=== PATIENT | male | born 1995 | race Caucasian/White ===

== ENCOUNTER 2021-01-28 11:49 | Emergency (ER) | payer BC ==
[2021-01-28] MEDS ORDERED: MECLIZINE HCL 12.5 MG TAB ONE (12:29)
[2021-01-28] MEDS ORDERED: ONDANSETRON 4 MG/2 ML VIAL ONE (12:29)
[2021-01-28 12:40] LABS: Absolute Lymphocytes (CBC) 5.9 K/uL (0.7-4.9); Basophils % 0.3 % (0-1.3); Hematocrit 46.8 % (39.6-49.0); Lymphocytes % 48.8 % (15.3-44.8); MPV 8.7 fL (7.6-11.3); RBC Red Blood Cell Count 5.42 M/uL (4.33-5.43)
--- NOTE | 2021-01-28 13:10 | RAD REPORT ---
EXAM DESCRIPTION: RAD - Chest Single View - 01/28/2021 12:59 pm CLINICAL HISTORY: CHEST PAIN Chest pain. COMPARISON: No comparisons FINDINGS: Portable technique limits examination quality. The lungs are grossly clear. The heart is normal in size. No displaced fractures. IMPRESSION: No acute intrathoracic process suspected.
[2021-01-28 13:19] LABS: Bilirubin Direct 0.1 mg/dL (0-0.2); Bilirubin Total 0.6 mg/dL (0.2-1.0)
[2021-01-28 13:23] LABS: Potassium 2.7 mmol/L (3.5-5.1)
[2021-01-28 14:01] LABS: NT PRO-BNP 24 pg/mL (<125); Troponin (Emerg Dept Use Only) < 0.02 ng/mL (0.0-0.045)
[2021-01-28 16:00] LABS: Urine Blood Negative (Negative); Urine Glucose Negative (Negative); Urine Protein Negative (Negative); Urine Specific Gravity >=1.030 (1.005-1.030); Urine pH 6.5 (5.0-7.0)
[2021-01-28 16:09] LABS: Barbiturates NEGATIVE (NEGATIVE); Benzodiazepines NEGATIVE (NEGATIVE); Cocaine NEGATIVE (NEGATIVE); METHAMPHETAM NEGATIVE (NEGATIVE); Methadone NEGATIVE (NEGATIVE); Opiates NEGATIVE (NEGATIVE); Phencyclidine NEGATIVE (NEGATIVE); THC Cannibis NEGATIVE (NEGATIVE)
--- NOTE | 2021-01-28 16:13 | ER ---
Nurse's Notes [facility] Name: Isaac Orozco Age: 25 yrs Sex: Male : 1995 Arrival Date: 01/28/2021 Time: 11:50 Bed 16 Private MD: Diagnosis: Benign paroxysmal vertigo, unspecified ear Presentation: 01/28 11:52 Chief complaint: Patient states: about 30 min ago pt started feeling a weird sensation iw in his chest and felt dizzy, then started vomiting bile , actively dry heaving now, [id number], VSS, pt denies any drug or alcohol use. Coronavirus screen: At this time, the client does not indicate any symptoms associated with coronavirus-19. Ebola Screen: Patient negative for fever greater than or equal to 101.5 degrees Fahrenheit, and additional compatible Ebola Virus Disease symptoms Patient denies exposure to infectious person. Patient denies travel to an Ebola-affected area in the 21 days before illness onset. No symptoms or risks identified at this time. Initial Sepsis Screen: Does the patient meet any 2 criteria? No. Patient's initial sepsis screen is negative. Does the patient have a suspected source of infection? No. Patient's initial sepsis screen is negative. Risk Assessment: Do you want to hurt yourself or someone else? Patient reports no desire to harm self or others. Onset of symptoms was January 28, 2021. 11:52 Method Of Arrival: EMS: [facility] iw 11:52 Acuity: LAMAR 3 iw Triage Assessment: 12:08 General: Appears distressed, uncomfortable, Behavior is fussy, restless. Pain: Denies jw6 pain. EENT: No deficits noted. Neuro: No deficits noted. Cardiovascular: No deficits noted. Respiratory: No deficits noted. GI: Reports nausea, vomiting. : No deficits noted. Derm: No deficits noted. Musculoskeletal: No deficits noted. Historical: - Allergies: 11:56 No Known Allergies; iw - Home Meds: 11:56 None [Active]; iw - PMHx: 11:56 None; iw - PSHx: 11:56 None; iw - Immunization history:: Adult Immunizations Client reports receiving the 2nd dose of the Covid vaccine. - Social history:: Smoking status: Patient denies any tobacco usage or history of. Patient/guardian denies using alcohol, street drugs. Screenin:10 Abuse screen: Denies threats or abuse. Denies injuries from another. Nutritional jw6 screening: No deficits noted. Tuberculosis screening: No symptoms or risk factors identified. Fall Risk IV access (20 points). Assessment: 12:10 General: Appears distressed, Behavior is restless. Pain: Denies pain. Neuro: No jw6 deficits noted. Cardiovascular: No deficits noted. Respiratory: No deficits noted. GI: Abdomen is flat, Pt is actively vomiting clear fluid, Bowel sounds present X 4 quads. : No deficits noted. EENT: No deficits noted. Derm: No deficits noted. Musculoskeletal: No deficits noted. Vital Signs: 11:52 BP 121 / 55; Pulse 75; Resp 16; Pulse Ox 96% on R/A; Weight 135.17 kg; Height 6 ft. 0 iw in. (182.88 cm); 12:08 BP 118 / 59; Pulse 73; Resp 97; Temp 98.9; Pulse Ox 96% on R/A; Weight 135.17 kg; jw6 Height 6 ft. 0 in. (182.88 cm); Pain 0/10; 14:08 BP 103 / 45; Pulse 65; Resp 18; Pulse Ox 98% on R/A; jw6 12:08 Body Mass Index 40.42 (135.17 kg, 182.88 cm) jw6 ED Course: 11:50 Patient arrived in ED. iw 11:52 Keon Maya NP is PHCP. pm1 11:52 Arnel Ross MD is Attending Physician. pm1 11:54 Initial lab(s) drawn, by fl, sent to lab. Inserted saline lock: 20 gauge in left dh3 antecubital area, using aseptic technique. Blood collected. 11:56 Triage completed. iw 11:57 Suzan Santos is Primary Nurse. jw6 11:57 Arm band placed on. iw 12:10 Patient has correct armband on for positive identification. Bed in low position. Call jw6 light in reach. Side rails up X 1. engine monitor on. Pulse ox on. NIBP on. 12:59 XRAY Chest (1 view) In Process Unspecified. EDMS 14:08 No provider procedures requiring assistance completed. jw6 15:56 UDS Sent. jw6 16:39 IV discontinued, intact, bleeding controlled, No redness/swelling at site. Pressure jw6 dressing applied. Administered Medications: 12:08 Drug: Zofran (Ondansetron) 4 mg Route: IVP; Site: left antecubital; jw6 12:11 Follow up: Response: No adverse reaction jw6 12:08 Drug: Meclizine 50 mg Route: PO; jw6 12:11 Follow up: Response: No adverse reaction jw6 16:39 Drug: Potassium Chloride 40 mEq Route: PO; jw6 16:39 Follow up: Response: No adverse reaction jw6 16:48 Not Given (Patient Refused): Zofran (Ondansetron) 4 mg IVP once; over 2 minutes jw6 Outcome: 16:12 Discharge ordered by . pm1 16:39 Discharged to home ambulatory. jw6 16:39 Condition: good 16:39 Discharge instructions given to patient, Instructed on discharge instructions, follow up and referral plans. medication usage, Demonstrated understanding of instructions, follow-up care, medications, Prescriptions given X 2. 16:48 Patient left the ED. jw6 Signatures: Dispatcher [employer] EDEna Fischer RN RN iw Marinas, Patrick, NP GLUER MACHINE OPERATOR pm1 Yu Sánchez 3 Suzan Santos jw6
--- NOTE | 2021-01-28 16:13 | EDPHYS ---
Physician Documentation [facility] Name: Isaac Orozco Age: 25 yrs Sex: Male : 1995 Arrival Date: 01/28/2021 Time: 11:50 Bed 16 Private MD: ED Physician Arnel Ross HPI: 01/28 11:59 This 25 yrs old Male presents to ER via EMS with complaints of pm1 Nausea/Vomiting. 11:59 The patient presents to the emergency department with nausea, vomiting. pm1 11:59 Onset: The symptoms/episode began/occurred today. Possible causes: unknown. The pm1 symptoms are aggravated by movement of head and light The symptoms are alleviated by remaining still, closing eyes. Associated signs and symptoms: Pertinent positives: chest pressure, Pertinent negatives: abdominal pain, fever. Severity of symptoms: in the emergency department the symptoms are unchanged. The patient has not experienced similar symptoms in the past. The patient has not recently seen a physician. Historical: - Allergies: 11:56 No Known Allergies; iw - Home Meds: 11:56 None [Active]; iw - PMHx: 11:56 None; iw - PSHx: 11:56 None; iw - Immunization history:: Adult Immunizations Client reports receiving the 2nd dose of the Covid vaccine. - Social history:: Smoking status: Patient denies any tobacco usage or history of. Patient/guardian denies using alcohol, street drugs. ROS: 11:59 Constitutional: Negative for fever, chills, and weight loss, Cardiovascular: Negative pm1 for chest pain, palpitations, and edema, Respiratory: Negative for shortness of breath, cough, wheezing, and pleuritic chest pain, Back: Negative for injury and pain, MS/Extremity: Negative for injury and deformity, Skin: Negative for injury, rash, and discoloration. 11:59 ENT: Negative for injury, pain, and discharge, Neck: Negative for injury, pain, and swelling. 11:59 Abdomen/GI: Positive for nausea and vomiting, Negative for abdominal pain, diarrhea, constipation. 11:59 Neuro: Positive for dizziness, Negative for headache. 11:59 All other systems are negative. Exam: 11:59 Constitutional: This is a well developed, well nourished patient who is awake, alert, pm1 and in no acute distress. Head/Face: Normocephalic, atraumatic. 11:59 Back: No spinal tenderness. No costovertebral tenderness. Full range of motion. Skin: Warm, dry with normal turgor. Normal color with no rashes, no lesions, and no evidence of cellulitis. MS/ Extremity: Pulses equal, no cyanosis. Neurovascular intact. Full, normal range of motion. 11:59 Eyes: Extraocular movements: intact throughout, Conjunctiva: no acute changes, no injection, Sclera: no acute changes, icterus, is not appreciated, Nystagmus: horizontal present when gazing to the right. 11:59 Cardiovascular: Exam negative for acute changes, Rate: normal, Rhythm: regular, Pulses: no pulse deficits are appreciated. 11:59 Respiratory: Exam negative for acute changes, respiratory distress, shortness of breath, Breath sounds: are clear throughout. 11:59 Abdomen/GI: Exam negative for acute changes, Inspection: abdomen appears normal, Palpation: abdomen is soft and non-tender, in all quadrants. 11:59 Neuro: Exam negative for acute changes, Orientation: is normal, Mentation: is normal, Cranial nerves: CN II- XII are normal as tested, Motor: moves all fours, Sensation: is normal, no obvious gross deficits. Vital Signs: 11:52 BP 121 / 55; Pulse 75; Resp 16; Pulse Ox 96% on R/A; Weight 135.17 kg; Height 6 ft. 0 iw in. (182.88 cm); 12:08 BP 118 / 59; Pulse 73; Resp 97; Temp 98.9; Pulse Ox 96% on R/A; Weight 135.17 kg; jw6 Height 6 ft. 0 in. (182.88 cm); Pain 0/10; 14:08 BP 103 / 45; Pulse 65; Resp 18; Pulse Ox 98% on R/A; jw6 12:08 Body Mass Index 40.42 (135.17 kg, 182.88 cm) 6 MDM: 11:52 Patient medically screened. pm1 16:11 Data reviewed: vital signs. Data interpreted: Pulse oximetry: on room air is 98 %. pm1 Interpretation: normal. Counseling: I had a detailed discussion with the patient and/or guardian regarding: the historical points, exam findings, and any diagnostic results supporting the discharge/admit diagnosis, lab results, radiology results, the need for outpatient follow up, to return to the emergency department if symptoms worsen or persist or if there are any questions or concerns that arise at home. 01/28 11:51 Order name: Basic Metabolic Panel; Complete Time: 13:23 iw 01/28 11:51 Order name: CBC with Diff; Complete Time: 13:10 iw 01/28 11:51 Order name: Hepatic Function; Complete Time: 13:23 iw 01/28 11:51 Order name: Lipase; Complete Time: 13:23 iw 01/28 11:58 Order name: Magnesium; Complete Time: 14:03 pm1 01/28 11:58 Order name: NT PRO-BNP; Complete Time: 14:03 pm1 01/28 11:58 Order name: Troponin (emerg Dept Use Only); Complete Time: 14:03 pm1 01/28 11:58 Order name: XRAY Chest (1 view); Complete Time: 13:23 pm1 01/28 12:30 Order name: UDS pm1 01/28 12:30 Order name: Urine Drug Screen; Complete Time: 16:11 EDMS 01/28 16:01 Order name: Urine Dipstick-Ancillary; Complete Time: 16:11 EDMS 01/28 11:51 Order name: IV Saline Lock; Complete Time: 11:57 iw 01/28 11:51 Order name: Labs collected and sent; Complete Time: 11:57 iw 01/28 11:58 Order name: EKG; Complete Time: 11:59 pm1 01/28 11:58 Order name: Cardiac monitoring; Complete Time: 12:01 pm1 01/28 11:58 Order name: EKG - Nurse/Tech; Complete Time: 12:21 pm1 01/28 11:58 Order name: O2 Per Protocol; Complete Time: 12:01 pm1 01/28 11:58 Order name: O2 Sat Monitoring; Complete Time: 12:02 pm1 01/28 12:30 Order name: Urine Dipstick-Ancillary (obtain specimen); Complete Time: 16:03 pm1 Administered Medications: 12:08 Drug: Zofran (Ondansetron) 4 mg Route: IVP; Site: left antecubital; jw6 12:11 Follow up: Response: No adverse reaction jw6 12:08 Drug: Meclizine 50 mg Route: PO; jw6 12:11 Follow up: Response: No adverse reaction jw6 16:39 Drug: Potassium Chloride 40 mEq Route: PO; jw6 16:39 Follow up: Response: No adverse reaction jw6 16:48 Not Given (Patient Refused): Zofran (Ondansetron) 4 mg IVP once; over 2 minutes jw6 Disposition: 01/29 10:37 Co-signature as Attending Physician, Arnel Ross MD I agree with the assessment and eva plan of care. Disposition Summary: 01/28/21 16:12 Discharge Ordered Location: Home pm1 Problem: new pm1 Symptoms: have improved pm1 Condition: Stable pm1 Diagnosis - Benign paroxysmal vertigo, unspecified ear pm1 Followup: pm1 - With: Emergency Department - When: As needed - Reason: Worsening of condition Followup: pm1 - With: Private Physician - When: 2 - 3 days - Reason: Recheck today's complaints, Continuance of care, Re-evaluation by your physician Discharge Instructions: - Discharge Summary Sheet pm1 - Benign Positional Vertigo pm1 Forms: - Medication Reconciliation Form pm1 - Thank You Letter pm1 - Antibiotic Education pm1 - Prescription Opioid Use pm1 Prescriptions: - Meclizine 25 mg Oral Tablet - take 1 tablet by ORAL route every 8 hours As needed; 30 tablet; Refills: 0, pm1 Product Selection Permitted - ondansetron 4 mg Oral tablet,disintegrating - place 1 tablet by TRANSLINGUAL route every 8 hours As needed; 12 tablet; pm1 Refills: 0, Product Selection Permitted Signatures: Dispatcher [employer] Arnel Valdes MD MD cha Williams, Irene, RN Keon Dodd NP CEMENT KILN OPERATOR pm1 Suzan Santos jw6
[2021-01-28 16:55] VITALS: TEMP 98.9
[2021-01-28 16:56] VITALS: BP 103/45; O2SAT 98
[2021-01-28] MEDS ORDERED: POTASSIUM CL SA 10 MEQ TAB PO ONE (16:56)
== END 2021-01-28 16:48 | disposition home or self-care (01) ==
LOC: ER 11:49
DX: H81.10 Benign paroxysmal vertigo, unspecified ear (principal)
CPT/HCPCS: 93005; 85025; 80048; 36415; 83735; 80076; 81003; 84484; 83690; 83880; 80307; 71045; 96374; 99284; J2405